=== PATIENT | female | born 1995 | race Caucasian/White ===

== ENCOUNTER 2016-12-15 20:01 | Emergency (ER) | payer OTHER ==
[~2016-12-15] VITALS: Ht 165.1 cm; Wt 49.9 kg
[2016-12-15 20:12] VITALS: BP 110/68
== END 2016-12-15 21:03 | disposition home or self-care (01) ==
LOC: ER 20:03
DX: J11.1 Influenza due to unidentified influenza virus with other respiratory manifestations (principal)
CPT/HCPCS: 99281; A4606; Z7610; Z7502